=== PATIENT | female | born 1935 | race Caucasian/White ===

== ENCOUNTER → 2017-05-09 | Outpatient (CLI) | payer OTHER, MEDICARE ==
[2017-05-09 12:15] LABS: ALT/SGPT 20 U/L (12-78); BLOOD UREA NITROGEN 15 mg/dl (7-18); CALCIUM 9.1 mg/dl (8.5-10.1); CARBON DIOXIDE 29 mmol/L (21-32); CHLORIDE 97 mmol/L (98-107); CHOLESTEROL 210 mg/dl (0-200); CREATININE 0.87 mg/dl (0.60-1.20); GLUCOSE,FASTING 98 mg/dl (70-99); SODIUM 134 mmol/L (136-145); TRIGLYCERIDES 116 mg/dl (0-150); VERY LOW DENSITY LIPOPROT CALC 23 mg/dl
[2017-05-09 12:18] LABS: ALKALINE PHOSPHATASE 96 U/L (45-117); AST/SGOT 22 U/L (15-37); HDL CHOLESTEROL 70 mg/dl; LDL CHOLESTEROL CALCULATED 117 mg/dl
== END | disposition home or self-care (01) ==
LOC: C.LABPBG 07:23
PROVIDERS: ATTEND Physician Assistant
DX: Z00.00 Encounter for general adult medical examination without abnormal findings (principal)

== ENCOUNTER → 2017-08-31 | Outpatient (CLI) | payer OTHER, MEDICARE ==
[2017-08-31 17:53] LABS: ALBUMIN 3.9 gm/dl (3.4-5.0); ALT/SGPT 21 U/L (12-78); AST/SGOT 20 U/L (15-37); BLOOD UREA NITROGEN 17 mg/dl (7-18); CALCIUM 8.9 mg/dl (8.5-10.1); CARBON DIOXIDE 30 mmol/L (21-32); CREATININE 0.86 mg/dl (0.60-1.20); GLUCOSE,FASTING 96 mg/dl (70-99); SODIUM 132 mmol/L (136-145)
[2017-08-31 17:55] LABS: ALKALINE PHOSPHATASE 94 U/L (45-117); CHOLESTEROL 231 mg/dl (0-200); LDL CHOLESTEROL CALCULATED 139 mg/dl; TOTAL PROTEIN 7.7 gm/dl (6.4-8.2)
== END | disposition home or self-care (01) ==
LOC: C.LABPBG 11:04
PROVIDERS: ATTEND Physician Assistant
DX: Z00.00 Encounter for general adult medical examination without abnormal findings (principal)